=== PATIENT | male | born 1965 | race Caucasian/White ===

== ENCOUNTER 2019-01-27 07:19 | Emergency (ER) | payer BC ==
[~2019-01-27] VITALS: Ht 172.7 cm; Wt 109.1 kg
[2019-01-27] MEDS ORDERED: ondansetron 4mg rapidly disintigrating tab PO ONE (07:55)
[2019-01-27] MEDS ORDERED: HYDROcodone/acetaminophen 5mg/325mg tablet PO ONE (07:55)
[2019-01-27 08:35] VITALS: BP 132/73
[2019-01-27] MEDS ORDERED: HYDR-3965 PO (09:14)
== END 2019-01-27 09:47 | disposition home or self-care (01) ==
LOC: ER 07:19
DX: S82.141A Displaced bicondylar fracture of right tibia, initial encounter for closed fracture (principal); M25.551 Pain in right hip; Z79.899 Other long term (current) drug therapy; W17.89XA Other fall from one level to another, initial encounter; Y93.89 Activity, other specified; Y92.89 Other specified places as the place of occurrence of the external cause; Y99.8 Other external cause status
CPT/HCPCS: 29530; 73564; 99284; J2405